=== PATIENT | female | born 1950 | race Asian ===

== ENCOUNTER 2021-11-28 20:54 | Inpatient (IN) | payer OTHER ==
[~2021-11-28] VITALS: Ht 152.4 cm; Wt 56.7 kg
--- NOTE | 2021-11-28 20:55 | NUR ---
ARRIVED WITH [facility]
--- NOTE | 2021-11-28 21:06 | NUR ---
PT TAKEN TO BED #2
[2021-11-28 21:10] VITALS: BP 142/73
[2021-11-28] MEDS ORDERED: NACL 0.9% 500 ML IV ONE (21:30)
--- NOTE | 2021-11-28 21:34 | NUR ---
AGAPITO COLLECTED AND WALKED TO LAB
--- NOTE | 2021-11-28 22:00 | NUR ---
SPOKE TO DAUGHTER DEX [phone] AND GAVE UPDATE ON PATIENT STATUS. PER DAUGHTER MOTHER ONLY SPEAKS CANTONESE. MEDICATION REC COMPLETED, WILL BE GIVEN TO ADMITTING NURSE.
[2021-11-28] MEDS ORDERED: ONDANSETRON 4 MG/2 ML VIAL IM/IVP PRN (22:25)
[2021-11-28] MEDS ORDERED: ACETAMINOPHEN 325 MG TAB PO PRN (22:25)
[2021-11-28] MEDS ORDERED: DOCUSATE SODIUM 100 MG GELCAP PO PRN (22:25)
[2021-11-28] MEDS ORDERED: ZOLPIDEM 5 MG TAB PO PRN (22:25)
[2021-11-28] MEDS ORDERED: guaiFENesin DM 200/20 MG-10 ML 10 ML UDC PO PRN (22:25)
[2021-11-28] MEDS ORDERED: POTASSIUM CHLORIDE 10 MEQ TABER PO PRN (22:25)
--- NOTE | 2021-11-28 22:35 | NUR ---
ASSISTED PATIETN WITH BRIGHT CARE. PLACED NEW BRIEF AND LINEN. COLLECTED URINE AND WALKED TO LAB.
--- NOTE | 2021-11-28 22:42 | NUR ---
Patient will be admitted to care of MD NEWTON. Admited to MED SURG. Will go to room 124A. Belongings list completed. Report to SYLVIA HILL.
[2021-11-28 22:57] LABS: MAGNESIUM 2.4 mg/dL (1.8-2.4); PHOSPHORUS 2.5 mg/dL (2.5-4.9); PROTHROMBIN TIME 9.9 secs (10.8-13.4)
[2021-11-28] MEDS ORDERED: BENA20TA PO (23:10)
[2021-11-28] MEDS ORDERED: FURO-572 PO (23:14)
[2021-11-28] MEDS ORDERED: VITA1TAB44 PO (23:14)
[2021-11-28] MEDS ORDERED: DULO20EC PO (23:14)
[2021-11-28] MEDS ORDERED: ATOR20TA PO (23:14)
[2021-11-28] MEDS ORDERED: GLIP5TER PO (23:14)
[2021-11-28] MEDS ORDERED: K PH1TAB6 PO (23:14)
[2021-11-28] MEDS ORDERED: ASPI-1749 PO (23:14)
[2021-11-28] MEDS ORDERED: SODI650T2 PO (23:14)
[2021-11-28 23:24] LABS: APPEARANCE,URINE CLEAR (CLEAR); BILIRUBIN,URINE NEGATIVE (NEGATIVE); BLOOD, URINE NEGATIVE (NEGATIVE); COLOR,URINE YELLOW (YELLOW); LEUKOCYTE ESTERASE ,URINE NEGATIVE (NEGATIVE); NITRITE, URINE NEGATIVE (NEGATIVE); UGLUCOSE 3+ (NEGATIVE)
--- NOTE | 2021-11-28 23:40 | NUR ---
The patient's care was reviewed and supervised by Lenora Rios RN.
--- NOTE | 2021-11-28 23:40 | NUR ---
RECEIVED PATIENT FROM ER NURSE FOR CONTINUITY OF CARE VIA INDY. PT IS AOX4 CANTONESE SPAEAKING, ADMITTED FOR LEFT HIP PAIN S/P FALL. IV ON LAC 22G INTACT AND PATENT, VITAL SIGNS WNL,NO DISTRESS NOTED.WILL CONTINUE TO MONITOR
[2021-11-28 23:45] LABS: BARBITURATE, URINE NEGATIVE ng/ml (NEG <=200); BENZODIAZEPINE, URINE NEGATIVE ng/mL (NEG <=200); CANNABINOID, URINE NEGATIVE ng/mL (NEG <=50); COCAINE, URINE NEGATIVE ng/mL (NEG <=300); OPIATE, URINE NEGATIVE ng/mL (NEG <=2000); PHENCYCLIDINE SCREEN,URINE NEGATIVE ng/mL (NEG <=25)
[2021-11-29] VITALS: BP 119/72
[2021-11-29] MEDS: NACL 0.9% 1,000 ML IV SCH ×2 (01:10→15:07)
[2021-11-29] MEDS: HYDROcodone/APAP 7.5/325 MG 1 TAB PO PRN ×2 (01:17→07:49)
--- NOTE | 2021-11-29 03:00 | NUR ---
PATIENT ASLEEP,RESPIRATIONS EVEN AND UNLABORED, NORCO GIVEN FOR LEFT HIP PAIN
[2021-11-29 04:00] VITALS: BP 124/79
[2021-11-29 05:54] LABS: HEMATOCRIT 37.7 % (36-48); HEMOGLOBIN 11.8 g/dL (12.0-16.0); MEAN CORPUSCULAR HEMOGLOBIN 26 pg (27-31); MEAN CORPUSCULAR HGB CONC 31 g/dL (33-37); MEAN CORPUSCULAR VOLUME 82.6 fL (80-94); PLATELET COUNT (AUTO) 226 K/uL (140-450); RED BLOOD CELL COUNT(AUTO) 4.57 MIL/uL (4.20-5.40); RED CELL DISTRIBUTION WIDTH 17.3 % (11.6-13.7); WHITE BLOOD COUNT (AUTO) 10.4 K/uL (4.8-10.8)
--- NOTE | 2021-11-29 06:00 | NUR ---
PATIENT'S HOME MEDICATIONS WERE SENT TO SECURITY OFFICE , PATIENT IS AWAKE,NO COMPLAIN OF HIP PAIN AT THIS TIME.NO DISTRESS NOTED
[2021-11-29 06:12] LABS: ANION GAP 15.7 (8-16); CARBON DIOXIDE 17.2 mmol/L (21-32); CREATININE 0.9 mg/dL (0.6-1.3); POTASSIUM 3.9 mmol/L (3.5-5.1)
--- NOTE | 2021-11-29 07:20 | NUR ---
RECEIVED REPORT FROM NIGHTSHIFT NURSE LIZ FOR CONTINUITY OF CARE. PT IN STABLE CONDITION, A/OX4 AND CURRENTLY AWAKE, CANTONESE SPEAKING. PT IS BREATHING EVEN, REGULAR AND UNLABORED ON ROOM AIR. PT IS CONTINENT OF THE BOWEL AND BLADDER WITH SKIN INTACT, UNABLE TO AMBULATED DUE TO LEFT HIP FRACTURE. PT COMPLAINED OF PAIN IN LEFT HIP AND REQUESTED PAIN MEDICATIONS.
--- NOTE | 2021-11-29 07:56 | NUR ---
PT COMPLAINED OF PAIN IN LEFT HIP, FACE SCALE SHOWED OAIN 8/10. PT MEDICATED WITH PRN NORCO AND ZOFRAN TO PREVENT NAUSEA.
[2021-11-29 08:00] VITALS: BP 121/71
[2021-11-29 08:40] LABS: BASOPHILS % (MANUAL) 0 % (0-2); EOSINOPHILS % (MANUAL) 0 % (0-4); LYMPHOCYTES % (MANUAL) 9 % (20-46); MONOCYTES % (MANUAL) 3 % (5-12)
[2021-11-29 08:41] LABS: BUFFY COAT SMEAR PREP N
--- NOTE | 2021-11-29 09:15 | NUR ---
PT. WITH LOW PAT SCALE AT MODERATE TO HIGH RISK, CONTINUE TO FOLLOW PRESSURE INJURY PREVENTION INTERVENTIONS. -POSITIONING: TURN AND REPOSITION PATIENT Q 2H OR SOONER USE PILLOWS TO KEEP BONY PROMINENCES FROM DIRECT CONTACT WITH SURFACES USE REPOSITIONING WEDGES TO PROVIDE 30-DEGREE ANGLE FOR SIDE LYING POSITIONS OFFLOADING OR FOAM DRESSING TO ALL TUBING TO PREVENT MEDICAL DEVICES RELATED PRESSURE INJURY -RE-EVALUATING AND MANAGING INCONTINENCE MONITOR SKIN CONDITION DURING POSITION CHANGE DO NOT MASSAGE REDNESS, BONY PROMINENCES FREQUENT BRIGHT-CARE AND PROVIDE BARRIER CREAMS PRN IF SOILING MOISTURE CONTROL BY OFFER BED BROWNLEE/URINAL /ABSORBENT PAD TO WICK AND HOLD MOISTURE KEEP SKIN DRY AND PROTECT FROM FRICTION -MANAGE FRICTION/SHEAR/MOBILITY KEEP HOB AT THE LOWEST LEVEL OF ELEVATION NO MORE THAN 30 DEGREE UNLESS OTHERWISE CONTRAINDICATED USE LIFT SHEET OR TRANSFER DEVICE TO MOVE PATIENT AND PREVENT LATERAL SHEER. PROTECT HEELS, ELBOWS BONY PROMINENCES WITH SKIN BERRIES OR FOAM DRESSING IF EXPOSED TO FRICTION OFFLOAD BILATERAL HEELS BY PLACING PILLOWS UNDER CALVES AT ALL TIMES, UNLESS OTHERWISE CONTRAINDICATED -PRESSURE REDISTRIBUTION SURFACE THERAPY MIGUEL ISOFLEX MATTRESS -NUTRITION: PLEASE FOLLOW RD RECOMMENDATIONS AND OFFER NUTRITION SUPPLEMENTS IF ORDERED. PLEASE CONTACT WOUND CARE NURSE FOR ANY QUESTION AND CHANGE OF WOUND CONDITION.
--- NOTE | 2021-11-29 13:00 | NUR ---
ORTHO SURGEON CALLED, VERIFIED SURGICAL INTERVENTION FOR HIP REPAIR. PT AND FAMILY EDUCATED.
[2021-11-29 16:00] VITALS: BP 117/62
--- NOTE | 2021-11-29 17:45 | NUR ---
ORTHO SURGEON ROUNDED ON PT, SPOKE WITH PT AND FAMILY TO EDUCATE ABOUT PROCEDURE. SURGERY TO TAKE PLACE TOMORROW 11/30/21 AT 1700. FAMILY VERBALIZED UNDERSTANDING.
--- NOTE | 2021-11-29 19:30 | NUR ---
PATIENT RECEIVED REPORT FROM SALVATORE RN, PATIENT IN BED ALERT AND ORIENTED. PATIENT HAS LANGUAGE BARRIER ISSUES BUT WAS ABLE TO COMMUNICATE NEEDS FOR BED BROWNLEE. 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 PATIENT WILL BE TREATED TOTAL CARE FOR HER CONFORMABILITY. PATIENT WILL BE NPO AFTER MIDNIGHT BECAUSE OF SURGICAL PROCEDURE TOMORROW. CONSENT WILL BE OBTAINED TOMORROW IN THE AM AND ENDORSED TO AM SHIFT BECAUSE PROCEDURE WILL BE AT 1700. ABLE TO BREATH WITHOUT RESPIRATORY DISTRESS. NO NOTED SIGNS AND SYMPTOMS ANY PAIN AT THIS TIME. KEPT CLEAN AND DRY SIDE RAILS UP X 2 CALL LIGHT IN REACH FOR ASSISTANCE AND NEEDS. BED AT THE LOWEST LEVEL. [email or web address]
--- NOTE | 2021-11-29 19:30 | NUR ---
ENDORSED PT TO NIGHTSHIFT NURSE AYAH. PT IN STABLE CONDITION.
[2021-11-29 20:00] VITALS: BP 131/73
--- NOTE | 2021-11-29 20:00 | NUR ---
Patient's Plan of Care was discussed and reviewed with TERRY.
--- NOTE | 2021-11-29 22:47 | NUR ---
PATIENT REQUEST NURSING FOR BED BROWNLEE. PATIENT HAS AN ACCIDENT, NURSING CLEANED HER AND CHANGED GOWN. SIDE RAILS UP X 2 FOR SAFETY AND COMFORT. CALL LIGHT WITHIN REACH. [email or web address]
--- NOTE | 2021-11-30 01:08 | NUR ---
PATIENT NOTED IN BED ASLEEP. PATIENT USES THE CALL LIGHT TO URINATE IN BED BROWNLEE. KEPT CLEAN AND DRY. NO NOTED S/S OF PAIN/DISCOMFORT. NURSING WILL FREQUENT ROOM FOR ANY ANTICIPATED NEEDS BECAUSE OF LANGUAGE BARRIER. [email or web address]
[2021-11-30] MEDS: HYDROcodone/APAP 7.5/325 MG 1 TAB PO PRN (02:45)
--- NOTE | 2021-11-30 02:45 | NUR ---
ADMINISTERED NORCO TO PATIENT FOR PAIN. PATIENT APPEARED TO BE IN PAIN DUE TO FRACTURE. PATIENT INDICATED SEVERE PAIN. PATIENT TOLERATED MEDICATION WELL. WILL CONTINUE TO OBSERVE.
--- NOTE | 2021-11-30 03:03 | NUR ---
PATIENT NOTED IN BED ASLEEP. WAS GIVEN A PAIN PILL FOR ANTICIPATED PAIN. NON VERBAL COMMUNICATION SKILLS SUGGEST SHE IS IN PAIN WITH THE MOANS DURING BED BROWNLEE CHANGING. PATIENT HAS A CALL LIGHT FOR ALL ASSISTANCE. KEPT CLEAN AND DRY. NO NOTED S/S OF RESPIRAQTORY DISCOMFORT. NURSING WILL FREQUENT ROOM FOR ANY ANTICIPATED NEEDS BECAUSE OF HARD OF HEARING. [email or web address]
[2021-11-30 04:00] VITALS: BP 128/70
[2021-11-30 05:25] LABS: BASOPHILS # (AUTO) 0.1 K/uL (0.00-0.22); BASOPHILS % (AUTO) 0.6 % (0.0-2.0); EOSINOPHILS # (AUTO) 0.1 K/uL (0-0.4); HEMATOCRIT 40.2 % (36-48); HEMOGLOBIN 12.8 g/dL (12.0-16.0); LYMPHOCYTES % (AUTO) 10.5 % (20.5-51.1); MEAN CORPUSCULAR HEMOGLOBIN 26 pg (27-31); MEAN CORPUSCULAR HGB CONC 32 g/dL (33-37); MEAN CORPUSCULAR VOLUME 81.9 fL (80-94); MONOCYTES % (AUTO) 10.6 % (1.7-9.3); NEUTROPHILS # (AUTO) 7.3 K/uL (1.8-7.7); NEUTROPHILS % (AUTO) 77.3 % (42.2-75.2); PLATELET COUNT (AUTO) 263 K/uL (140-450); RED BLOOD CELL COUNT(AUTO) 4.91 MIL/uL (4.20-5.40); RED CELL DISTRIBUTION WIDTH 17.1 % (11.6-13.7); WHITE BLOOD COUNT (AUTO) 9.5 K/uL (4.8-10.8)
--- NOTE | 2021-11-30 05:26 | NUR ---
PATIENT WAS ABLE TO USE THE BED BROWNLEE WITH NURSING ASSISTANCE. PATIENT WAS KEPT CLEAN AND DRY. SIDE RAILS UP X 2. CALL LIGHT IN REACH. PATIENT WAS ANXIOUS. NURSING REMINDED PATIENT NO FOOD BECAUSE SURGERY FOR TODAY. PATIEENT UNDERSTOOD AND AGREED. [email or web address]
[2021-11-30 06:15] LABS: ANION GAP 14.8 (8-16); CARBON DIOXIDE 18.4 mmol/L (21-32); POTASSIUM 4.2 mmol/L (3.5-5.1)
--- NOTE | 2021-11-30 07:24 | NUR ---
ENDORSED PATIENT TO TIMOTHY LOO, PATIENT WAS STABLE AT SHIFT CHANGE. [email or web address]
--- NOTE | 2021-11-30 07:25 | NUR ---
RECEIVED REPORT FROM WREATH INSPECTOR NURSE FOR CONTINUITY OF CARE. PATIENT AWAKE NO DISTRESS NOTED. PATIENT RESPIRATION EVEN AND NOT LABORED NO SHORTNESS OF BREATH ON ROOM AIR. IV SITE ON LEFT AC MARIANELA 22 RUNNING NS AT 60 CC/HOUR.. ALL SAFETY MEASURE IN PLACE.
[2021-11-30] MEDS: NACL 0.9% 1,000 ML IV SCH (07:45)
--- NOTE | 2021-11-30 09:32 | NUR ---
PATIENT HAS BEEN SCREENED AND CATEGORIZED LOW NUTRITION RISK. PATIENT WILL BE SEEN WITHIN 7 DAYS OF ADMISSION. 12/05/[address]
--- NOTE | 2021-11-30 11:30 | NUR ---
ASSISTED PATIENT ON BED BROWNLEE TOLERATED. ON GOING NPO FOR SURGERY. IV ONGOING AT 60 CC/HOUR. PATIENT CALM NO COMPLAIN OF PAIN AT THIS TIME ONLY WHEN SHE MOVED.
--- NOTE | 2021-11-30 13:30 | NUR ---
PATIENT ASLEEP NO DISTRESS NOTED. CALL LIGHT WITH IN EASY REACH.
--- NOTE | 2021-11-30 14:30 | NUR ---
PATIENT LEFT THE UNIT FOR HER PROCEDURE PATIENT AWAKE ON STABLE CONDITION CONTINUE ON NPO.
--- NOTE | 2021-11-30 15:01 | NUR ---
DC PLANNING: PATIENT TRANSFERRED FROM [facility] WITH DX OF LEFT HIP INTERTROCHANTERIC FRACTURE. PATIENT SEEN BY ORTHOPEDIC SURGEON, PATIENT TO OR TODAY FOR LEFT FEMUR SURGICAL FIXATION. CM SPOKE WITH THE PATIENTS DAUGHTER DEX BY PHONE AND CONFIRMED THE ADDRESS AND PHONE NUMBER. THE PATIENT LIVES WITH HER SPOUSE AND DAUGHTER IN A 2 STORY [place]. SHE IS ABLE TO WALK A HALF HOUR WITHOUT ASSISTANCE AND HAS DME OF 4 WHEEL WALKER, WC AND CAN. SHE'S HAD HOME HEALTH AND P.T. EARLIER THIS YEAR WITH [facility], . THE FAMILY HAS ALSO PURCHASED A 3 IN 1 COMMODE AND SOFA BED SO THE PATIENT DOESN'T HAVE TO CLIMB STAIRS. FAMILY DOES NOT WANT SNF, PATIENT WILL NEED GURNEY TRANSPORT THROUGH [facility] TRANSPORT WHEN SHE'S STABLE FOR DC. CM WILL FOLLOW. Addendum: 12/01/21 at 1355 by Marianne Marcus CM DC PLANNING: PATIENT TO DC HOME TODAY, TRANSPORT REQUESTED THROUGH 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 MARJ SPOKE WITH THE PATIENTS DAUGHTER DEX TO ENDORSE DISCHARGE, SHE STATES FAMILY WILL BE HOME ALL DAY. CM WILL FOLLOW.
[2021-11-30 16:00] VITALS: BP 120/71
[2021-11-30] MEDS ORDERED: ceFAZolin 2,000 MG VIAL ONE (17:03)
[2021-11-30] MEDS ORDERED: BUPIVACAINE-MPF 0.25% 30 ML VIAL INJ ONE (17:03)
[2021-11-30] MEDS ORDERED: METOCLOPRAMIDE 10 MG/2 ML INJ VIAL ONE (17:19)
[2021-11-30] MEDS ORDERED: SEVOFLURANE 250 ML BTL INH ONE (17:19)
[2021-11-30] MEDS ORDERED: ONDANSETRON 4 MG/2 ML VIAL ONE (17:19)
[2021-11-30] MEDS ORDERED: DEXAMETHASONE 4 MG/ML VIAL ONE (17:19)
[2021-11-30] MEDS ORDERED: PROPOFOL 200 MG/20 ML VIAL IV ONE (17:19)
[2021-11-30] MEDS ORDERED: ePHEDrine 50 MG/ML VIAL ONE (17:19)
--- NOTE | 2021-11-30 19:19 | NUR ---
PATIENT STILL AT OR GAVE REPORT TO RECREATIONAL SPORTS DIRECTOR NURSE FOR CONTINUITY OF CARE.
--- NOTE | 2021-11-30 19:50 | NUR ---
RECEIVED PATIENT FROM OR. PATIENT IS AWAKE,ALERT AND ORIENTED. DENIES PAIN AT THIS TIME. DRESSING IN THE LEFT HIP/UPPER LEG CDI. NO ACUTE RESPIRATORY DISTRESS NOTED. MADE COMFORTABLE IN BED. SKIN WARM AND DRY TO TOUCH. BED IN THE LOWEST AND LOCKED POSITION FOR SAFETY, CALL LIGHT WITHIN REACH,.
[2021-11-30 20:00] VITALS: BP 138/72
[2021-11-30] MEDS ORDERED: ceFAZolin 1,000 MG VIAL ONE (20:28)
--- NOTE | 2021-11-30 22:00 | NUR ---
PATIENT VOIDED FREELY. PERINEAL CARE RENDERED.
--- NOTE | 2021-12-01 00:07 | NUR ---
PATIENT ASLEEP. NO S/SX OF PAIN NOR DISCOMFORT. CALL LIGHT WITHIN REACH.
[2021-12-01] MEDS: NACL 0.9% 1,000 ML IV SCH (00:25)
--- NOTE | 2021-12-01 03:30 | NUR ---
PROVIDED BEDPAN PER PATIENT'S REQUEST,AM CARE DONE. POSITIONED FOR COMFORT. CALL LIGHT IN REACH.
[2021-12-01] MEDS ORDERED: ceFAZolin 1,000 MG VIAL ONE (04:59)
[2021-12-01 06:04] LABS: BASOPHILS % (AUTO) 0.1 % (0.0-2.0); HEMATOCRIT 38.1 % (36-48); HEMOGLOBIN 12.1 g/dL (12.0-16.0); LYMPHOCYTES # (AUTO) 0.6 K/uL (2.5-16.5); LYMPHOCYTES % (AUTO) 4.9 % (20.5-51.1); MEAN CORPUSCULAR HEMOGLOBIN 26 pg (27-31); MEAN CORPUSCULAR HGB CONC 32 g/dL (33-37); MEAN CORPUSCULAR VOLUME 82.2 fL (80-94); MONOCYTES # (AUTO) 0.9 K/uL (0.8-1.0); MONOCYTES % (AUTO) 7.8 % (1.7-9.3); NEUTROPHILS # (AUTO) 10.3 K/uL (1.8-7.7); NEUTROPHILS % (AUTO) 87.2 % (42.2-75.2); PLATELET COUNT (AUTO) 250 K/uL (140-450); RED BLOOD CELL COUNT(AUTO) 4.64 MIL/uL (4.20-5.40); RED CELL DISTRIBUTION WIDTH 17.1 % (11.6-13.7); WHITE BLOOD COUNT (AUTO) 11.8 K/uL (4.8-10.8)
--- NOTE | 2021-12-01 06:06 | NUR ---
PATIENT ASLEEP. NO DISTRESS NOTED. ALL NEEDS ATTENDED TO. SAFETY PRECAUTIONS MAINTAINED DURING THE SHIFT, CALL LIGHT REMAINED WITHIN REACH.
[2021-12-01 06:22] LABS: ANION GAP 18.5 (8-16); CARBON DIOXIDE 15.6 mmol/L (21-32); POTASSIUM 4.1 mmol/L (3.5-5.1)
--- NOTE | 2021-12-01 07:09 | NUR ---
REPORT GIVEN TO AM NURSE. PATIENT IS ASLEEP. NO S/SX OF PAIN NOR DISCOMFORT. CALL LIGHT WITHIN REACH.
--- NOTE | 2021-12-01 07:25 | NUR ---
RECEIVED REPORT FROM NUTRITION INTERNSHIP NURSE FOR CONTINUITY OF CARE. PATIENT ASLEEP NO DISTRESS NOTED. RESPIRATION EVEN AND NOT LABORED NO SHORTNESS OF BREATH. ON ROOM AIR . IV SITE ON LEFT AC MARIANELA 22 AND RIGHT HAND RUNNING NS AT 60 CC/HOURS. PATIENT DENIES PAIN OR ANY DISCOMFORT.ALL SAFETY MEASURE IN PLACE.
[2021-12-01 08:00] VITALS: BP 116/66
--- NOTE | 2021-12-01 08:22 | NUR ---
PATIENT AWAKE EATING BREAKFAST GIVEN HER HEPARIN. DENIES PAIN AT THIS TIME. IV FLUID STILL NO INFILTRATE OR S/S OF INFECTION OR FLUID OVER LOAD NOTE. CALL LIGHT WITH IN EASY REACH.
[2021-12-01] MEDS: HYDROcodone/APAP 7.5/325 MG 1 TAB PO PRN (09:34)
--- NOTE | 2021-12-01 09:35 | NUR ---
COMPLAIN OF PAIN MEDICATED ORDER WITH HELP.
[2021-12-01] MEDS ORDERED: HEPA500056 SUBQ (11:56)
--- NOTE | 2021-12-01 14:40 | NUR ---
PATIENT ALERT NO DISTRESS NOTED. RESIDENT DISCHARGE PACKET WITH INSTRUCTION GIVEN TO SON SIGNED IT. NAME BAND AND IV SITE REMOVED WITH CATHETER INTACT. PATIENT BELONGING TAKEN BUT THE MEDICATION THAT SHE BROUGHT TO ED WAS MISSING LOCK FROM ROOM , MED ROOM PHARMACY AND ED UNABLE TO FIND IT . THEY LEFT BUT FOUND MEDICATION AT SECURITY CALLED DEX SO THE BROTHER CAN PICK IT UP AND HE CAME BACK AND GET BAG OF HER MEDICATION.
== END 2021-12-01 14:35 | disposition home or self-care (01) | DRG 482 ==
LOC: MED 20:54 → MMU 22:23 → MTU 22:34
PROVIDERS: ADMIT Student in an Organized Health Care Education/Training Program; ATTEND Student in an Organized Health Care Education/Training Program
PROC: 0QS704Z Reposition Left Upper Femur with Internal Fixation Device, Open Approach (ICD-10-PCS; principal; 2021-11-30 17:00)
DX: S72.142A Displaced intertrochanteric fracture of left femur, initial encounter for closed fracture (principal); I10 Essential (primary) hypertension; E11.9 Type 2 diabetes mellitus without complications; E78.5 Hyperlipidemia, unspecified; W18.39XA Other fall on same level, initial encounter; Z20.822 Contact with and (suspected) exposure to COVID-19; Z79.82 Long term (current) use of aspirin; Z79.899 Other long term (current) drug therapy; Y93.89 Activity, other specified; Y92.89 Other specified places as the place of occurrence of the external cause; Y99.8 Other external cause status
CPT/HCPCS: 36415; 71045; 73501; 77003; 80048; 80305; 81003; 82150; 83690; 83735; 84100; 85025; 85610; 85730; 86886; 86900; 86901; 87081; 96360; 99285; C1713; C1769; J0690; J1100; J1644; J2405; J2704; J2765; J3490; J7060; Q0092